=== PATIENT | female | born 1965 | race Two or more races ===

== ENCOUNTER 2020-03-23 14:03 | Outpatient (CLI) | payer OTHER ==
[~2020-03-23] VITALS: Ht 160 cm; Wt 64.9 kg
[2020-03-23] MEDS ORDERED: PEPCID AC10 MG PO (15:25)
[2020-03-23] MEDS ORDERED: PRILOSEC OTC20 MG PO (15:25)
== END 2020-03-23 15:49 | disposition home or self-care (01) ==
LOC: OFIC 805 14:03
PROVIDERS: ATTEND Otolaryngology
DX: K21.0 Gastro-esophageal reflux disease with esophagitis (principal); J35.8 Other chronic diseases of tonsils and adenoids

== ENCOUNTER 2020-04-25 08:45 | Outpatient (CLI) | payer OTHER ==
[~2020-04-25 08:45] MED LIST: PEPCID AC10 MG PO; PRILOSEC OTC20 MG PO
== END 2020-04-25 14:40 | disposition home or self-care (01) ==
LOC: OFIC 805 08:45
PROVIDERS: ATTEND Otolaryngology
DX: K21.9 Gastro-esophageal reflux disease without esophagitis (principal); J35.8 Other chronic diseases of tonsils and adenoids

== ENCOUNTER 2020-05-11 06:00 | Outpatient (CLI) | payer OTHER | END 2020-05-11 06:10 | disposition home or self-care (01) | LOC: LAB 06:00 → ADM 10:00 → EDSTATUS 05-15 10:00 → CIR.AMB 05-15 10:00 | PROVIDERS: ATTEND Otolaryngology | DX: D10.4 Benign neoplasm of tonsil (principal); Z20.828 Contact with and (suspected) exposure to other viral communicable diseases; Z01.810 Encounter for preprocedural cardiovascular examination; Z01.812 Encounter for preprocedural laboratory examination; Z01.811 Encounter for preprocedural respiratory examination ==